=== PATIENT | male | born 1990 | race Caucasian/White ===

== ENCOUNTER 2021-10-04 08:56 | Emergency (ER) | payer OTHER ==
[~2021-10-04] VITALS: Ht 190.5 cm; Wt 130.4 kg
[2021-10-04 11:31] LABS: BASO # 0.1 10^3/uL (0.0-0.2); BASO % 0.4 % (0.0-1.0); EOS % 0.1 % (0.0-3.0); HEMATOCRIT 45.3 % (42.0-52.0); HEMOGLOBIN 15.1 g/dl (13.5-17.5); LYMPH # 1.3 10^3/uL (1.5-5.0); LYMPH % 8.9 % (24.0-44.0); MEAN CORPUSCULAR HEMOGLOBIN 28.2 pg (27.0-33.0); MEAN CORPUSCULAR HGB CONC 33.3 g/dl (32.0-36.5); MEAN CORPUSCULAR VOLUME 84.7 fl (80.0-96.0); MONO # 0.8 10^3/uL (0.0-0.8); MONO % 5.5 % (2.0-8.0); NEUTROPHILS # 12.1 10^3/uL (1.5-8.5); NEUTROPHILS % 84.7 % (36.0-66.0); PLATELET COUNT, AUTOMATED 175 10^3/uL (150-450); RED BLOOD COUNT 5.35 10^6/uL (4.30-6.10); WHITE BLOOD COUNT 14.3 10^3/uL (4.0-10.0)
[2021-10-04] MEDS ORDERED: ONDANSETRON 4MG 2ML VIAL IV ONE (11:40)
[2021-10-04] MEDS ORDERED: NS 1,000 ML IV ONE (11:40)
[2021-10-04] MEDS ORDERED: TAMSULOSIN 0.4 MG CAP PO ONE (11:40)
[2021-10-04] MEDS ORDERED: KETOROLAC 30 MG/ML 1ML VIAL IV ONE (11:40)
[2021-10-04 11:56] LABS: ERYTHROCYTE SEDIMENTATION RATE 3 mm/hr (0-15)
[2021-10-04 12:06] VITALS: BP 153/97
[2021-10-04 12:11] LABS: ALBUMIN 4.3 GM/DL (3.2-5.2); BILIRUBIN,DIRECT 0.2 MG/DL (0.0-0.2); BILIRUBIN,TOTAL 0.7 MG/DL (0.2-1.0); C REACTIVE PROTEIN QUANTITATIV 0.3 MG/DL (0.00-0.30); CALCIUM LEVEL 9.2 MG/DL (8.5-10.1); CREATININE FOR GFR 1.6 MG/DL (0.70-1.30); GLOMERULAR FILTRATION RATE 53.6 (>60)
[2021-10-04] MEDS ORDERED: FLOM0.4C39 PO (13:04)
[2021-10-04] MEDS ORDERED: HYDR-3713 PO (13:04)
== END 2021-10-04 14:57 | disposition home or self-care (01) ==
LOC: M ED 08:56
DX: N20.0 Calculus of kidney (principal); N17.9 Acute kidney failure, unspecified
CPT/HCPCS: 74176; 80047; 80048; 80076; 81001; 83690; 85025; 85652; 86140; 96361; 96374; 96375; 99283; J1885; J2405